=== PATIENT | female | born 1970 | race Caucasian/White ===

== ENCOUNTER → 2016-08-23 | Outpatient (CLI) | payer OTHER ==
[~2016-08-23] MED LIST: BENA25CA2 PO; ESCI10TA2 PO; FAMO1TAB11 PO; LEXA1TAB PO; PRED20TA PO; ZOLP6.25 PO
--- NOTE | 2016-08-24 07:54 | RADONC ---
RADIATION ONCOLOGY FOLLOWUP NOTE: DATE: 08/23/2016 CHART NO: [id number] DIAGNOSIS: Left breast cancer. STAGE: Stage III A, [id number] ECOG PERFORMANCE STATUS: 1 Ms. 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 The patient presents today reporting that she is doing quite well with no complaints today related to her radiation therapy other than uncomfortable lymphedema of her left upper extremity. She is being seen by the lymphedema clinic. The patient has no breast or bone pain. REVIEW OF SYSTEMS: The patient's review of systems is positive for some left upper extremity edema which is tender but is otherwise noncontributory. Denies nausea, vomiting, fevers, chills, night sweats, diplopia, headaches, anxiety or depression, anorexia, weight loss, visual disturbances, chest pain, urinary or bowel difficulties, bone pain, or neurological problems. PHYSICAL EXAMINATION: The patient is a well-developed, well-nourished female in no acute distress. HEENT exam is normocephalic, atraumatic. Extraocular movements are intact. There is no palpable cervical, supraclavicular, infraclavicular, axillary, or inguinal lymphadenopathy present. Lungs are clear to auscultation and percussion. Heart has a regular rate and rhythm. Abdomen is benign with no hepatosplenomegaly, masses, or tenderness. Breast examination reveals bilateral reconstruction. There is no evidence of nodularity ulceration or recurrent disease. Skeletal examination reveals no tenderness to pressure or percussion of the bony skeleton. Extremities reveal no clubbing, cyanosis. There is some mild left upper extremity edema present. or edema. Neurologic exam is grossly intact, as is the remainder of the physical examination. ASSESSMENT: The patient is clinically JASPREET at this time will be seen by us again in 1 year for further followup. She will also continue to be followed by her other physicians as well. cc: *Trung Medina MD *Mahin Harris MD *Dottie Wylie MD
== END ==
LOC: M ONCR 10:06
PROVIDERS: ATTEND Radiology Radiation Oncology
DX: C50.112 Malignant neoplasm of central portion of left female breast (principal)

== ENCOUNTER → 2016-08-25 | Outpatient (REF) | payer OTHER | LOC: M LAB REF 11:09 | PROVIDERS: ATTEND Physician Assistant Medical | DX: J02.9 Acute pharyngitis, unspecified (principal) ==

== ENCOUNTER 2016-09-28 09:12 | Outpatient (RCR) | payer OTHER | END 2016-10-01 | LOC: M PT 09:12 | PROVIDERS: ATTEND Radiology Radiation Oncology | DX: Z51.89 Encounter for other specified aftercare (principal); I89.0 Lymphedema, not elsewhere classified ==

== ENCOUNTER → 2017-08-22 | Outpatient (CLI) | payer OTHER ==
[2017-08-24 00:07] LABS: CA 27.29 13.7 U/mL (0.0-38.6)
[2017-08-24 10:18] LABS: CA15-3 ANTIGEN 6.3 U/ML (<32.4)
== END ==
LOC: M ONCR 10:04
DX: C50.112 Malignant neoplasm of central portion of left female breast (principal)
CPT/HCPCS: 86300

== ENCOUNTER → 2018-08-17 | Outpatient (CLI) | payer OTHER ==
[2018-08-17 18:02] LABS: BASO # 0.1 10^3/uL (0.0-0.2); BASO % 0.9 % (0.0-1.0); EOS # 0.1 10^3/uL (0.0-0.50); EOS % 1.3 % (0.0-3.0); HEMATOCRIT 43.2 % (36.0-47.0); HEMOGLOBIN 14.7 g/dl (12.0-15.5); LYMPH % 36.2 % (24.0-44.0); MEAN CORPUSCULAR HEMOGLOBIN 28.9 pg (27.0-33.0); MONO # 0.5 10^3/uL (0.0-0.8); MONO % 9.2 % (0.0-5.0); NEUTROPHILS # 2.8 10^3/uL (1.8-7.7); NEUTROPHILS % 52.2 % (36.0-66.0); PLATELET COUNT, AUTOMATED 204 10^3/uL (150-450); RED BLOOD COUNT 5.08 10^6/uL (4.00-5.40); WHITE BLOOD COUNT 5.4 10^3/uL (4.0-10.0)
[2018-08-17 18:11] LABS: ALBUMIN 4.7 GM/DL (3.2-5.2); ALT/SGPT 44 U/L (12-78); BLOOD UREA NITROGEN 14 MG/DL (7-18); CALCIUM LEVEL 9.5 MG/DL (8.5-10.1); CARBON DIOXIDE LEVEL 30 MEQ/L (21-32); CHLORIDE LEVEL 101 MEQ/L (98-107); CHOLESTEROL LEVEL 224 MG/DL (<200); CREATININE FOR GFR 0.78 MG/DL (0.55-1.30); FREE T4 1.12 NG/DL (0.76-1.46); GLOMERULAR FILTRATION RATE > 60.0 (>58); GLUCOSE, FASTING 98 MG/DL (70-100); HDL CHOLESTEROL 40 MG/DL (>40); HEMOGLOBIN A1c 4.6 %; LDL CHOLESTEROL 154 MG/DL (<100); NON-HDL-C 184 MG/DL; POTASSIUM SERUM 3.9 MEQ/L (3.5-5.1); SODIUM LEVEL 138 MEQ/L (136-145); TOTAL PROTEIN 8.4 GM/DL (6.4-8.2); TRIGLYCERIDES LEVEL 151 MG/DL (<150)
== END ==
LOC: M LABDRWAD 09:04
PROVIDERS: ATTEND Physician Assistant
DX: Z13.29 Encounter for screening for other suspected endocrine disorder (principal)

== ENCOUNTER → 2018-08-28 | Outpatient (CLI) | payer OTHER ==
--- NOTE | 2018-08-29 13:08 | RADONC ---
RADIATION ONCOLOGY FOLLOWUP NOTE DATE: 08/28/2018 CHART #: [id number] DIAGNOSIS: Left breast cancer. STAGE: III A, [id number]. ECOG PERFORMANCE STATUS: 0. FOLLOWUP NOTE: Ms. 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 The patient presents today reporting that she is doing quite well with no complaints at this time related to her radiation therapy or disease. She has no chest wall or bone pain. REVIEW OF SYSTEMS: The patient's review of systems is noncontributory. Denies nausea, vomiting, fevers, chills, night sweats, diplopia, headaches, anxiety or depression, anorexia, weight loss, visual disturbances, chest pain, urinary or bowel difficulties, bone pain, or neurological problems. PHYSICAL EXAMINATION: The patient is a well-developed, well-nourished, 48-year-old female in no acute distress. HEENT exam is normocephalic, atraumatic. Extraocular movements are intact. There is no palpable cervical, supraclavicular, infraclavicular, axillary, or inguinal lymphadenopathy present. Lungs are clear to auscultation and percussion. Heart has a regular rate and rhythm. Abdomen is benign with no hepatosplenomegaly, masses, or tenderness. Breast examination reveals bilateral reconstruction present. There is no evidence of nodularity, ulceration or recurrent disease. Skeletal examination reveals no tenderness to pressure or percussion of the bony skeleton. Extremities reveal no clubbing, cyanosis, or edema. Neurologic exam is grossly intact, as is the remainder of the physical examination. ASSESSMENT: The patient is clinically JASPREET at this time. I have explained to the patient that I will be retiring before her next visit here. I have recommended that she contact Dr. Harris's office and set up routine followup with her physicians in [place]. In the meantime, she is also being followed here by her primary care doctor. cc: MD Dottie Cornejo MD Joel Yellin, MD
== END ==
LOC: M ONCR 09:52
PROVIDERS: ATTEND Radiology Radiation Oncology
DX: Z85.3 Personal history of malignant neoplasm of breast (principal)

== ENCOUNTER → 2018-11-15 | Outpatient (CLI) | payer OTHER ==
[2018-11-15 12:51] LABS: ALBUMIN 4.1 GM/DL (3.2-5.2); ALT/SGPT 37 U/L (12-78); BILIRUBIN,TOTAL 0.5 MG/DL (0.2-1.0); BLOOD UREA NITROGEN 15 MG/DL (7-18); CALCIUM LEVEL 9.4 MG/DL (8.5-10.1); CARBON DIOXIDE LEVEL 34 MEQ/L (21-32); CHLORIDE LEVEL 105 MEQ/L (98-107); CHOLESTEROL LEVEL 165 MG/DL (<200); CHOLESTEROL RISK RATIO 4.459 (<5); CREATININE FOR GFR 0.66 MG/DL (0.55-1.30); GLOMERULAR FILTRATION RATE > 60.0 (>58); GLUCOSE, FASTING 86 MG/DL (70-100); HDL CHOLESTEROL 37 MG/DL (>40); LDL CHOLESTEROL 102 MG/DL (<100); MAGNESIUM LEVEL 2.3 MG/DL (1.8-2.4); NON-HDL-C 128 MG/DL; POTASSIUM SERUM 3.6 MEQ/L (3.5-5.1); SODIUM LEVEL 142 MEQ/L (136-145); TOTAL PROTEIN 7.7 GM/DL (6.4-8.2); TRIGLYCERIDES LEVEL 130 MG/DL (<150)
== END ==
LOC: M LAB 10:54
PROVIDERS: ATTEND Physician Assistant
DX: I10 Essential (primary) hypertension (principal)

== ENCOUNTER → 2019-08-15 | Outpatient (CLI) | payer OTHER ==
--- NOTE | 2019-08-19 11:53 | SLEEPHOME ---
DATE OF PROCEDURE: 08/15/2019 ORDERED BY: Kathy Quan Diagnostic home sleep testing was performed due to concern for the obstructive sleep apnea syndrome. For testing, a nocturnal T3 respiratory monitoring device was used. Continuous record was made of pulse, oxygen saturation, airflow, chest and abdominal strain and body position. 6 hours and 10 minutes of data were reviewed. There were 6 hours and 10 minutes marked as time in bed. During the interval marked time in bed, there were 57 respiratory events identified of 10 seconds in duration or greater for a respiratory event index of 9.2. The events were primarily obstructive. Baseline pulse rate 71, pulse rate ranged 59-98. Baseline saturation was 93%, saturations fell to 85%. Testing was performed in both the supine and nonsupine positions. IMPRESSION: Abnormal home sleep testing with repetitive respiratory events and oxygen desaturations to 85% with a respiratory event index of 9.2 is consistent with the obstructive sleep apnea syndrome. RECOMMENDATION: The patient should be encouraged to undergo formal sleep evaluation.
== END ==
LOC: M SLEEP HO 12:55
PROVIDERS: ATTEND Nurse Practitioner Family
DX: G47.33 Obstructive sleep apnea (adult) (pediatric) (principal)

== ENCOUNTER → 2019-09-30 | Outpatient (REF) | payer OTHER ==
[2019-09-30 13:04] LABS: BASO % 0.8 % (0.0-1.0); EOS # 0.1 10^3/uL (0.0-0.5); EOS % 1.3 % (0.0-3.0); HEMATOCRIT 39.1 % (36.0-47.0); HEMOGLOBIN 13.4 g/dl (12.0-15.5); LYMPH % 40.8 % (24.0-44.0); MEAN CORPUSCULAR HEMOGLOBIN 29.6 pg (27.0-33.0); MEAN CORPUSCULAR HGB CONC 34.3 g/dl (32.0-36.5); MEAN CORPUSCULAR VOLUME 86.5 fl (80.0-96.0); MONO # 0.4 10^3/uL (0.0-0.8); MONO % 8.1 % (0.0-5.0); NEUTROPHILS # 2.3 10^3/uL (1.5-8.5); NEUTROPHILS % 48.8 % (36.0-66.0); PLATELET COUNT, AUTOMATED 156 10^3/uL (150-450); RED BLOOD COUNT 4.52 10^6/uL (4.00-5.40); WHITE BLOOD COUNT 4.8 10^3/uL (4.0-10.0)
[2019-09-30 13:12] LABS: ALT/SGPT 32 U/L (12-78); BILIRUBIN,TOTAL 0.6 MG/DL (0.2-1.0); BLOOD UREA NITROGEN 14 MG/DL (7-18); CALCIUM LEVEL 9.1 MG/DL (8.5-10.1); CARBON DIOXIDE LEVEL 30 MEQ/L (21-32); CHLORIDE LEVEL 106 MEQ/L (98-107); CHOLESTEROL LEVEL 199 MG/DL (<200); CHOLESTEROL RISK RATIO 4.422 (<5); CREATININE FOR GFR 0.62 MG/DL (0.55-1.30); GLOMERULAR FILTRATION RATE > 60.0 (>58); GLUCOSE, FASTING 86 MG/DL (70-100); HDL CHOLESTEROL 45 MG/DL (>40); LDL CHOLESTEROL 127 MG/DL (<100); NON-HDL-C 154 MG/DL; POTASSIUM SERUM 4.3 MEQ/L (3.5-5.1); SODIUM LEVEL 140 MEQ/L (136-145); TOTAL PROTEIN 7.4 GM/DL (6.4-8.2); TRIGLYCERIDES LEVEL 134 MG/DL (<150)
[2019-09-30 13:19] LABS: TOTAL 25(OH) VITAMIN D 12.1 NG/ML (30.0-100.0)
== END ==
LOC: M LABDRWAD 12:37
PROVIDERS: ATTEND Physician Assistant
DX: E78.2 Mixed hyperlipidemia (principal)

== ENCOUNTER 2021-01-05 17:30 | Emergency (ER) | payer OTHER ==
[~2021-01-05] VITALS: Ht 167.6 cm; Wt 12.3 kg
[~2021-01-05 17:30] MED LIST changes: +ESCI10TA16 PO; -ESCI10TA2 PO; -ZOLP6.25 PO; +ZOLP6.2517 PO
[2021-01-05] MEDS ORDERED: POTA1TAB23 (17:44)
[2021-01-05] MEDS ORDERED: FURO40TA2 (17:44)
[2021-01-05] MEDS ORDERED: PANT40TA29 (17:44)
[2021-01-05] MEDS ORDERED: SEMA0.252 (17:44)
--- NOTE | 2021-01-05 21:32 | REPVR ---
PROCEDURE INFORMATION: Exam: US Duplex Left Lower Extremity Veins, Limited Exam date and time: 01/05/2021 7:49 PM Age: 50 years old Clinical indication: Pain; Leg, lower; Left; Additional info: Swelling TECHNIQUE: Imaging protocol: Real-time Duplex ultrasound of the Left Lower Extremity with 2-D killian scale, color Doppler flow and spectral waveform analysis with image documentation. Limited exam focused on the left lower extremity veins. COMPARISON: CT CHEST/ABD/PELVIS W/ CONTRAST - OUTSIDE PRIOR 03/28/2017 12:00 AM FINDINGS: Left deep veins: Unremarkable. The common femoral, femoral, proximal profunda femoral and popliteal veins are patent without thrombus. Normal Doppler waveforms. Normal compressibility and/or augmentation response. Left superficial veins: Unremarkable. Saphenofemoral junction is patent without thrombus. Soft tissues: Lower leg edema. IMPRESSION: Lower leg edema. No DVT. Electronically signed by: Juan R Pemberton On 01/05/2021 21:31:55 PM
[2021-01-05 21:52] VITALS: BP 135/71
== END 2021-01-05 21:56 | disposition home or self-care (01) ==
LOC: M ED 17:30
DX: S86.912A Strain of unspecified muscle(s) and tendon(s) at lower leg level, left leg, initial encounter (principal); X58.XXXA Exposure to other specified factors, initial encounter; Y92.9 Unspecified place or not applicable; Y93.9 Activity, unspecified; Y99.9 Unspecified external cause status; K21.9 Gastro-esophageal reflux disease without esophagitis; Z88.0 Allergy status to penicillin; Z88.1 Allergy status to other antibiotic agents; Z88.8 Allergy status to other drugs, medicaments and biological substances

== ENCOUNTER 2021-03-27 10:43 | Emergency (ER) | payer OTHER ==
[~2021-03-27] VITALS: Ht 167.6 cm; Wt 114.3 kg
[~2021-03-27 10:43] MED LIST changes: +FURO40TA2; +PANT40TA29; +POTA1TAB23; +SEMA0.252
--- OUTSIDE RECORDS SUMMARY | 2021-03-27 10:51 | CCD | Continuity of Care Document ---
Author Kimberly Samuels Organization Unknown Address [address] [place] [address] Phone [phone] Care Team Providers Care Machine Trimmer Name Role Phone Magda Westbrook D.O.M Problems Active Problems Provider Date Migraine without aura, not refractory AVA Díaz On set: 08/12/2018 Generalized anxiety disorder AVA Díaz Onset: 08/02 Personal history of primary malignant neoplasm of breast [place]nn haAVA Ballard Onset: 08/12/2018 Obstructive sleep apnea syndrome AVA Díaz Onset: 08/12/2018 Postmastectomy lymphedema syndrome AVA Díaz Onset : 08/12/2018 Essential hypertension AVA Díaz Onset: 10/17/2018 Mixed hyperlipidemia AVA Díaz Onset: 10/17/2018 Obesity AVA Díaz Onset: 10/17/2018 Vitamin D deficiency AVA Díaz Onset: 01/12/2020 Lymphedema AVA Díaz Onset: 01/12/2020 Social History Type Date Description Comments Sex Unknown ETOH Use Denies alcohol use Tobacco Use Start: Unknown Patient has never smoked Recreational Drug Use Denies Drug Use Exercise Type/Frequency Walks 5 times a week Sun Exposure Uses sunscreen Seat Belt/Car Seat Always uses seat belt Allergies, Adverse Reactions, Alerts Active Allergies Reaction Severity Comments Date Vicodin rash 07/29/2018 Escitalopram anaphylaxsis 07/29/2018 Zolpidem Tartrate anaphylaxsis 07/29/2018 Vancomycin anaphylaxsis 07/29/2018 Contrast Dye anaphylaxsis 07/29/2018 Gentamicin rash 07/29/2018 Venlafaxine headache, rash 07/29/2018 Reglan anaphylaxsis 07/29/2018 Latex rash 07/29/2018 Ceftin gum bleeding 07/29/2018 Prednisone anaphylaxsis 07/29/2018 Penicillin rash 07/29/2018 Cephalosporins 07/29/2018 Adhesive rash 07/29/2018 Claritin 08/12/2018 Medications Active Medications SIG Qnty Indications Ordering Provide r Date Pantoprazole Sodium 40mg Tablets D R 1 by mouth every day 90tabs K21.9 Fide Lipscomb.O. 12/28 Zofran 4mg Tablets 1-2 tablets by mouth every 6 hours as needed for nausea 45tabs K21.9 Fide Hernandez.O. 12/28/2020 Wegovy 0.25mg/0.5ML Solution Auto- Inject once a week injection at 0.25 mg for four weeks and then every 4 weeks increase dosage to 0.5 mg, 1 mg, 1.7 mg then 2.4 mg 2ml E66.9 Chance LipscombOJuli 12/28/2020 Furosemide 40mg Tablets Take One Tablet By Mouth Every Morning 90tabs R60.0 Chance LipscombO. 0 10/21/2020 Medical Compression Stockings/Female/15- 20MMHG/Knee/LG/Short Mis one unit to wear daily to help with edema of leg 2units R60.0 Chance LipscombOJuli 01/22/2019 Truform Arm Sleeve/Medium/20-30MMHG Misc left arm wear as needed for edema. 2units I89.0 Chance HernandezOJuli 01/22/2019 Blood Pressure Monitor Digital/Auto-In flation Misc one unit, check blood pressure regularly 1units I10 Chance TelloOJuli 08/12/2018 Potassium Chloride ER 10Meq Tablet s ER Take Two Tablets By Mouth Every Other Day Alternating With 4 Tablets Every Other Day 240tabs Chance LipscombOJuli 00/00 /0000 Immunizations Description No Information Available Vital Signs Date Vital Result Comment 12/28/2020 1:18pm BP Systolic 128 mmHg BP Diastolic 78 mmHg Height 64 inches 5'4" Weight 271.00 lb BMI (Body Mass Index) 46.5 kg/m2 Heart Rate 61 /min Respiratory Rate 14 /min Body Temperature 97.8 F O2 % BldC Oximetry 97 % [place] Body Weight 120 lb 01/12/2020 1:01pm BP Systolic 126 mmHg BP Diastolic 72 mmHg Height 64 inches 5'4" Weight 231.38 lb BMI (Body Mass Index) 39.7 kg/m2 Heart Rate 71 /min Respiratory Rate 18 /min Body Temperature 97.9 F O2 % BldC Oximetry 98 % [place] Body Weight 120 lb Results Description No Information Available Procedures Date Code Description Status 12/28/2020 79024 Office/Outpatient Established Mo d MDM 30-39 Min Completed Medical Devices Description No Information Available Encounters Type Date Location Provider Dx Diagnosis Office Visit 12/28/2020 1:15p [facility] AVA Díaz I10 Essential (primary) hyperten larisa E78.2 Mixed hyperlipidemia I89.0 Lymphedema, not elsewhere cl assified E55.9 Vitamin D deficiency, unspec ified E66.9 Obesity, unspecified K21.9 Gastro-esophageal reflux dis ease without esophagitis Z68.42 Body mass index [BMI] 45.0-4 9.9, adult Assessments Date Code Description Provider 12/28/2020 I10 Essential (primary) hypertension AVA Díaz 12/28/2020 E78.2 Mixed hyperlipidemia AVA Babin 12/28/2020 I89.0 Lymphedema, not elsewhere classi fied AVA Díaz 12/28/2020 E55.9 Vitamin D deficiency, unspecifie d AVA Díaz 12/28/2020 E66.9 Obesity, unspecified AVA Babin 12/28/2020 K21.9 Gastro-esophageal reflux disease without esophagitis AVA Díaz 12/28/2020 Z68.42 Body mass index [BMI] 45.0-49.9, adult AVA Díaz Plan of Treatment Future Appointment(s):* 02/28/2021 3:30 pm - AVA Díaz at [facility] Functional Status Description No Information Available Mental Status Description No Information Available Referrals Description No Information Available
--- OUTSIDE RECORDS SUMMARY | 2021-03-27 10:52 | CCD ---
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 Name Role Phone Maring, Casey PA Unavailable Unavailable Maring, Casey PA Unavailable Unavailable Maring, Casey PA Unavailable Unavailable Maring, Casey PA Unavailable Unavailable Maring, Casey PA Unavailable Unavailable Maring, Casey PA Unavailable Unavailable Maring, Casey PA Unavailable Unavailable Maring, Casey PA Unavailable Unavailable Maring, Casey PA Unavailable Unavailable Maring, Casey PA Unavailable Unavailable Maring, Casey PA Unavailable Unavailable Maring, Casey PA Unavailable Unavailable Maring, Casey PA Unavailable Unavailable Maring, Casey PA Unavailable Unavailable Maring, Casey PA Unavailable Unavailable Maring, Casey PA Unavailable Unavailable O'shari, A Remberto PA Unavailable Unavailable O'shari, A Remberto PA Unavailable Unavailable O'shari, A Remberto PA Unavailable Unavailable O'shari, A Remberto PA Unavailable Unavailable O'shari, A Remberto PA Unavailable Unavailable O'shari, A Remberto PA Unavailable Unavailable O'shari, A Remberto PA Unavailable Unavailable O'shari, A Remberto PA Unavailable Unavailable O'shari, A Remberto PA Unavailable Unavailable O'shari, A Remberto PA Unavailable Unavailable O'shari, A Remberto PA Unavailable Unavailable O'shari, A Remberto PA Unavailable Unavailable O'shari, A Remberto PA Unavailable Unavailable O'shari, A Remberto PA Unavailable Unavailable O'shari, A Remberto PA Unavailable Unavailable O'shari, A Remberto PA Unavailable Unavailable O'shari, A Remberto PA Unavailable Unavailable O'shari, A Remberto PA Unavailable Unavailable O'shari, A Remberto PA Unavailable Unavailable O'shari, A Remberto PA Unavailable Unavailable O'shari, A Remberto PA Unavailable Unavailable O'shari, A Remberto PA Unavailable Unavailable O'shari, A Remberto PA Unavailable Unavailable O'shari, A Remberto PA Unavailable Unavailable O'shari, A Remberto PA Unavailable Unavailable O'shari, A Remberto PA Unavailable Unavailable O'shari, A Remberto PA Unavailable Unavailable O'shari, A Remberto PA Unavailable Unavailable O'shari, A Remberto PA Unavailable Unavailable O'shari, A Remberto PA Unavailable Unavailable O'shari, A Remberto PA Unavailable Unavailable O'shari, A Remberto PA Unavailable Unavailable O'shari, A Remberto PA Unavailable Unavailable Re-disclosure Warning The records that you are about to access may contain information from federally-assisted alcohol or drug abuse programs. If such information is present, then the following federally mandated warning applies: This information has been disclosed to you from records protected by federal confidentiality rules (42 CFR part 2). The federal rules prohibit you from making any further disclosure of this information unless further disclosure is expressly permitted by the written consent of the person to whom it pertains or as otherwise permitted by 42 CFR part 2. A general authorization for the release of medical or other information is NOT sufficient for this purpose. The Federal rules restrict any use of the information to criminally investigate or prosecute any alcohol or drug abuse patient.The records that you are about to access may contain highly sensitive health information, the redisclosure of which is protected by Article 27-F of the [facility] Public Health law. If you continue you may have access to information: Regarding HIV / AIDS; Provided by facilities licensed or operated by the [facility] Office of Mental Health; or Provided by the [facility] Office for People With Developmental Disabilities. If such information is present, then the following [facility] mandated warning applies: This information has been disclosed to you from confidential records which are protected by state law. State law prohibits you from making any further disclosure of this information without the specific written consent of the person to whom it pertains, or as otherwise permitted by law. Any unauthorized further disclosure in violation of state law may result in a fine or group home sentence or both. A general authorization for the release of medical or other information is NOT sufficient authorization for further disc losure. Family History Family Member Name Family Member Gender Family Member Status Date o f Status Description Data Source(s) Unknown Male Problem [facility] ([facility]) Unknown Unknown Problem [facility] mother,father Unknown Male Problem [facility] Unknown Female Problem [facility] ([facility] Unknown Female Problem [facility] ([facility] Unknown Male Problem [facility] ([facility]) Encounters Encounter Providers Location Date Indications Data Source(s ) Outpatient Attender: Casey ESCALNATE 01/06/20 04:23:56 PM EDT - 01/05/2021 04:53:36 PM EDT [facility] ([facility] ) Outpatient Attender: Remberto ESCALANTE [facility] 12/28/2020 01:15:00 PM EDT [facility] ([facility]) Immunizations Vaccine Date Status Description Data Source(s) COVID-19 VACC, MRNA(PFIZER)/PF 03/23/2021 12:00:00 AM EDT completed [facility] COVID-19 VACCINE Pfizer 08/17/2020 12:00:00 AM EDT completed [facility] Vaccine Series Complete: YESThis Data wa s Submitted to [facility]. COVID-19 VACCINE Pfizer 07/27/2020 12:00:00 AM EST completed [facility] Vaccine Series Complete: NOThis Data was Submitted to [facility] INFLUENZA VIRUS VACCINE QUADRIVALENT 2019- (6 MOS AN D UP) 02/04/2020 12:00:00 AM EDT completed [facility] Medications Medication Brand Name Start Date Product Form Dose Route Admi nistrative Instructions Pharmacy Instructions Status Indications Reaction Description Data Source(s) 32 gauge x 5/32" 02/24/2021 12:00:00 AM EDT needle 90 USE DAILY WITH SAXENDA DIRECTED USE DAILY WITH SAXENDA DIRECTED SOLD: 02/26/2021 [facility] 3 mg/0.5 mL (18 mg/3 mL) 02/23/2021 12:00:00 AM EDT pen inje ctor 45 INJECT 0.6 MG UNDER THE SKIN DAILY FOR 1 WEEK AND THEN EACH WEEK INCREASE DOSE BY 0.6, INCREASE UP TO A TOTAL OF 3MG INJECT 0.6 MG UNDER THE SKIN DAILY FOR 1 WEEK AND THEN EACH WEEK INCREASE DOSE BY 0.6, INCREASE UP TO A TOTAL OF 3MG SOLD: 02/26/2021 [facility] 60 mcg (15 mcg x 4)/0.5 mL 02/09/2021 12:00:00 AM EDT syring e 0 USE DIRECTED USE DIRECTED SOLD: 02/09/2021 [facility] 40 mg 02/01/2021 12:00:00 AM EDT tablet 90 TAKE ONE TABLET BY MOUTH EVERY MORNING TAKE ONE TABLET BY MOUTH EVERY MORNING SOLD: 02/02/2021 [facility] 0.5 mg/0.5 mL 01/24/2021 12:00:00 AM EDT pen injector 2 INJECT 0.5MG UNDER SKIN ONCE WEEKLY FOR 4 WEEKS, THEN CALL DR FOR NEW RX AT HIGHER DOSE INJECT 0.5MG UNDER SKIN ONCE WEEKLY FOR 4 WEEKS, THEN CALL DR FOR NEW RX AT HIGHER DOSE SOLD: 01/25/2021 [facility] 0.25 mg/0.5 mL 12/29/2020 12:00:00 AM EDT pen injector 2 INJECT 0.25MG ONCE WEEKLY FOR 4 WEEKS THEN INCREASE TO 0.5MG WEEKLY THEN IN 4 WEEKS INCREASE TO 1.7MG WEEKLY THEN IN 4 WEEKS INCREASE TO 2.4MG WEEKLY INJECT 0.25MG ONCE WEEKLY FOR 4 WEEKS THEN INCREASE TO 0.5MG WEEKLY THEN IN 4 WEEKS INCREASE TO 1.7MG WEEKLY THEN IN 4 WEEKS INCREASE TO 2.4MG WEEKLY SOLD: 12/29/2020 [facility] pantoprazole 40 MG Delayed Release Oral Tablet PANTOPRAZOLE SODIUM 12/28/2020 12:00:00 AM EDT tablet,delayed release (DR/EC) 90 T LUCI ONE TABLET BY MOUTH EVERY DAY TAKE ONE TABLET BY MOUTH EVERY DAY SOLD: 12/29/2020 [facility] pantoprazole 40 MG Delayed Release Oral Tablet PANTOPRAZOLE SODIUM 12/28/2020 12:00:00 AM EDT tablet,delayed release (DR/EC) 90 T LUCI ONE TABLET BY MOUTH EVERY DAY TAKE ONE TABLET BY MOUTH EVERY DAY SOLD: 03/23/2021 [facility] Wegovpaulina Wegovy 12/28/2020 12:00:00 AM EDT active [facility] ([facility]) pantoprazole 40 MG Delayed Release Oral Tablet Pantoprazole Sodium 12/28/2020 12:00:00 AM EDT ORAL active [facility] ([facility]) Ondansetron 4 MG Oral Tablet [Zofran] Zofran 12/28/2020 12:00:00 AM EDT ORAL active [facility] ([facility]) Potassium Chloride 10 MEQ Extended Release Oral Tablet POTAS SIUM CHLORIDE 12/28/2020 12:00:00 AM EDT tablet extended release 240 TAKE TWO TABLETS BY MOUTH EVERY OTHER DAY ALTERNATING WITH 4 TABLETS EVERY OTHER DAY TAKE TWO TABLETS BY MOUTH EVERY OTHER DAY ALTERNATING WITH 4 TABLETS EVERY OTHER DAY SOLD: 12/29/2020 [facility] 4 mg 12/28/2020 12:00:00 AM EDT tablet 9 TAKE 1 TO 2 TABLETS BY MOUTH EVERY 6 HOURS NEEDED FOR NAUSEA TAKE 1 TO 2 TABLETS BY MOUTH EVERY 6 ISA RS NEEDED FOR NAUSEA SOLD: 12/29/2020 [facility] Potassium Chloride 10 MEQ Extended Release Oral Tablet POTAS SIUM CHLORIDE 12/28/2020 12:00:00 AM EDT tablet extended release 240 TAKE TWO TABLETS BY MOUTH EVERY OTHER DAY ALTERNATING WITH 4 TABLETS EVERY OTHER DAY TAKE TWO TABLETS BY MOUTH EVERY OTHER DAY ALTERNATING WITH 4 TABLETS EVERY OTHER DAY SOLD: 03/23/2021 [facility] Furosemide 40 MG Oral Tablet Furosemide 10/21/2020 12:00:00 AM EDT active [facility] ([facility]) 40 mg 10/21/2020 12:00:00 AM EDT tablet 90 TAKE ONE TABLET BY MOUTH EVERY MORNING TAKE ONE TABLET BY MOUTH EVERY MORNING SOLD: 10/22/2020 [facility] 32 gauge x 5/32" 03/14/2020 12:00:00 AM EDT needle 100 USE NEEDLES FOR SAXENDA DIRECTED USE NEEDLES FOR SAXENDA DIRECTED SOLD: 03/18/2020 [facility] . UNIT 02/04/2020 12:00:00 AM EDT Injectable 1 US E DIRECTED USE DIRECTED SOLD: 02/04/2020 [facility] Potassium Chloride 10 MEQ Extended Release Oral Tablet POTAS SIUM CHLORIDE 01/31/2020 12:00:00 AM EDT tablet extended release 240 TAKE TWO TABLETS BY MOUTH EVERY OTHER DAY ALTERNATING WITH 4 TABLETS EVERY OTHER DAY TAKE TWO TABLETS BY MOUTH EVERY OTHER DAY ALTERNATING WITH 4 TABLETS EVERY OTHER DAY SOLD: 02/03/2020 [facility] Potassium Chloride 10 MEQ Extended Release Oral Tablet POTAS SIUM CHLORIDE 01/31/2020 12:00:00 AM EDT tablet extended release 240 TAKE TWO TABLETS BY MOUTH EVERY OTHER DAY ALTERNATING WITH 4 TABLETS EVERY OTHER DAY TAKE TWO TABLETS BY MOUTH EVERY OTHER DAY ALTERNATING WITH 4 TABLETS EVERY OTHER DAY SOLD: 05/01/2020 [facility] 40 mg 01/29/2020 12:00:00 AM EDT tablet 90 TAKE ONE TABLET BY MOUTH EVERY MORNING TAKE ONE TABLET BY MOUTH EVERY MORNING SOLD: 05/01/2020 [facility] 40 mg 01/29/2020 12:00:00 AM EDT tablet 90 TAKE ONE TABLET BY MOUTH EVERY MORNING TAKE ONE TABLET BY MOUTH EVERY MORNING SOLD: 02/03/2020 [facility] 1,250 mcg (50,000 unit) 01/29/2020 12:00:00 AM EDT capsule 12 TAKE ONE CAPSULE BY MOUTH EVERY WEEK TAKE ONE CAPSULE BY MOUTH EVERY WEEK SOLD: 02/03/2020 [facility] 1,250 mcg (50,000 unit) 10/02/2019 12:00:00 AM EDT capsule 7 TAKE 1 CAPSULE BY MOUTH WEEKLY TAKE 1 CAPSULE BY MOUTH WEEKLY SOLD: 05/01/2020 [facility] 3 mg/0.5 mL (18 mg/3 mL) 08/11/2019 12:00:00 AM EDT pen inje ctor 45 USE 0.6 MG UNDER THE SKIN DAILY FOR 1 WEEK THEN EACH WEEK INCREASE DOSE BY 0.6, INCREASE UP TO TOTAL OF 3 MG USE 0.6 MG UNDER THE SKIN DAILY FOR 1 WE EK THEN EACH WEEK INCREASE DOSE BY 0.6, INCREASE UP TO TOTAL OF 3 MG SOLD: 01/29/2020 [facility] Insurance Providers Payer name Policy type / Coverage type Policy ID Covered libertarian ID Covered libertarian's relationship to ortiz Policy Ortiz Plan Information BS [facility] Maintenance Organization (HMO) [id number] Family Dependent EXC PLANS 1 [id number] [facility] 2 [id number] EXCELLUS H [id number] Child [id number] JOSÉ MANUEL CLAIMS ADMIN NCA WC W [id number] Empl [id number] EXCELLUS H [id number] Child [id number] EXCELLUS BCBS [id number] Spo VYS [id number] EXCELLUS BCBS [id number] Spo VYS [id number] Nca Comp Workers Compensation [id number] Self Nca Comp Workers Compensation [id number] Self [id number] JOSÉ MANUEL CLAIMS ADMIN NCA WC W [id number] Empl [id number] Nca Comp Workers Compensation [id number] Self [id number] Nca Comp Workers Compensation [id number] Self Nca Comp Workers Compensation [id number] Self [id number] Nca Comp Workers Compensation [id number] Self [id number] Nca Comp Workers Compensation [id number] Self [id number] [employer] (WC) Workers Compensation [id number] Self [facility] Com Workers Compensation [id number] Carlee f Nca Comp Workers Compensation [id number] Self [id number] [employer] [id number] Self [id number] [employer] [id number] Carlee [id number] R [facility] [id number] SP [id number] R [facility] [id number] SP [id number] [facility] [employer] [id number] Self [id number] KARMA CLAIM ADMIN WORK COMP [id number] SP [id number] BS/W/Id#Prefix/W ALL #'S Commercial [id number] Family Depende nt KARMA CLAIM ADMIN WORK COMP [id number] SP [id number] KARMA CLAIM ADMIN WORK P [id number] S [id number] KARMA CLAIM ADMIN WORK COMP [id number] SP [id number] OTHER WORKERS COMPENSATION [id number] SP [id number] KARMA CLAIM ADMIN WORK COMP [id number] SP [id number] SELF PAY 2 UNAVAILABLE 1 UNAVAILA BLE [facility] [id number] SP [id number] [facility] Commercial [id number] Self [id number] [facility] [id number] SP [id number] [facility] Maintenance Organization (HMO) [id number] Self [id number] [facility] Organization (HMO) [id number] Self [id number] [employer] [id number] SP [id number] BC/BS Of [facility] B [id number] Family Dependent V [id number] [employer] PPO O [id number] O [id number] [employer] PPO O [id number] S [id number] [employer] Workers Compensation [id number] Self [id number] [employer] [id number] Self [id number] [employer] [id number] Self [id number] [employer] [id number] Self [id number] [employer] [id number] Self [id number] [employer] [id number] Self [id number] [employer] [id number] Self [id number] [employer] [id number] Self [id number] [employer] [id number] Self [employer] Workers Compensation [id number] Self BCBS[employer] [id number] Family Dependent BCBS [place] PPO [id number] [employer] [id number] Self EXCELLUS BCBS B [id number] P VYS [id number] BCBS [place] PPO 302/307 [id number] Problems, Conditions, and Diagnoses No Information Surgeries/Procedures Procedure Description Date Indications Data Source(s) OFFICE OUTPATIENT VISIT 25 MINUTES 12/28/2020 12:00:[address] [facility] ([facility]) Results No Information Social History Code Duration Value Status Description Data Source(s ) Smoking 03/03/2020 12:00:00 AM EDT Non Smoker completed Non Smoke r [facility] ([facility], ) Vital Signs ID Date Data Source UNK Name Value Range Interpretation Code Description Data Source(s) Systolic blood pressure 128 mm[Hg] 128 mm[Hg] [facility] Diastolic blood pressure 78 mm[Hg] 78 mm[Hg] [facility] Body height 64 [in_i] 64 [in_i] [facility] ([facility] 5'4" Body weight 271.00 [lb_av] 271.00 [lb_av] [facility] T ([facility]) Body mass index (BMI) [Ratio] 46.5 kg/m2 46.5 k g/m2 [facility] ([facility]) Heart rate 61 /min 61 /min [facility] ([facility]) Respiratory rate 14 /min 14 /min [facility] ( [facility]) Body temperature 97.8 [degF] 97.8 [degF] [facility] ([facility]) Oxygen saturation in Arterial blood by Pulse oximetry 97 % 97 % [facility] ([facility]) [place] body weight 120 [lb_av] 120 [lb_av] [facility] T ([facility]) Systolic blood pressure 122 mm[Hg] 122 mm[Hg] M EDENT ([facility], ) Body weight 109.885 kg 109.885 kg [facility] ([facility]) Diastolic blood pressure 68 mm[Hg] 68 mm[Hg] [facility] Heart rate 69 /min 69 /min [facility] ([facility], ) Oxygen saturation in Arterial blood by Pulse oximetry 98 % 98 % [facility] ([facility]) Body temperature 96.0 [degF] 96.0 [degF] [facility] ([facility]) Body height 65 [in_i] 65 [in_i] [facility] ([facility]) 5'5" Body weight 242.25 [lb_av] 242.25 [lb_av] [facility] T ([facility]) Body mass index (BMI) [Ratio] 40.3 kg/m2 40.3 k g/m2 [facility] ([facility]) [place] body weight 125 [lb_av] 125 [lb_av] [facility] T ([facility])
[2021-03-27] MEDS ORDERED: SAXE1INJ SQ (10:56)
[2021-03-27] MEDS ORDERED: MAGN200T PO (11:33)
[2021-03-27] MEDS ORDERED: NORCO, ANEXSIA 5/325MG TABLET (HYDROcodone/ACETAMINOPHEN) PO ONE (11:50)
[2021-03-27] MEDS ORDERED: diphenhydrAMINE 50MG/ML VIAL (J1200) IV STA (11:50)
--- OUTSIDE RECORDS SUMMARY | 2021-03-27 12:18 | CCD ---
Author Author [facility] Organization [facility] Address Unknown Phone Unavailable Care Team Providers Care Analyst Business Analysis Name Role Phone Maring, Casey PA Unavailable [...] is protected by Article 27-F of the [facility] Public Health law. If you continue you may have access to information: Regarding HIV / AIDS; Provided by facilities licensed or operated by the [facility] Office of Mental Health; or Provided by the [facility] Office for People With Developmental Disabilities. If such information is present, then the following [facility] mandated warning applies: This information has been [...] law may result in a fine or longterm sentence or both. A general authorization for the release of medical or other information is NOT sufficient authorization for further disc losure. Family History Family Member Name Family Member Gender Family Member Status Date o f Status Description Data Source(s) Unknown Male Problem [facility] ([facility]) Unknown Unknown Problem [facility] mother,father Unknown Male Problem [facility] ([facility] Female Problem [facility] ([facility] Unknown Female Problem [facility] ([facility] Unknown Male Problem [facility] ([facility]) Encounters Encounter Providers Location Date Indications Data Source(s ) Outpatient Attender: Casey ESCALANTE 01/06/20 04:23:56 PM EDT - 01/05/2021 04:53:36 PM EDT [facility] ([facility] ) Outpatient Attender: Remberto ESCALANTE [facility] 12/28/2020 01:15:00 PM EDT [facility] ([facility]) Immunizations Vaccine Date Status Description Data Source(s) COVID-19 VACC, MRNA(PFIZER)/PF 03/23/2021 12:00:00 AM EDT completed [facility] COVID-19 VACCINE Pfizer 08/17/2020 12:00:00 AM EDT completed [facility] Vaccine Series Complete: YESThis Data wa s Submitted to [facility] Via [employer]. COVID-19 VACCINE Pfizer 07/27/2020 12:00:00 AM EST completed [facility] Vaccine Series Complete: NOThis Data was Submitted to [facility] Via [employer]. INFLUENZA VIRUS VACCINE QUADRIVALENT 2019- (6 MOS [...] USE DIRECTED USE DIRECTED SOLD: 02/09/2021 [facility] 40 mg 02/01/2021 12:00:00 AM EDT [...] [facility] 12/28/2020 12:00:00 AM EDT active [facility] ([facility]) pantoprazole 40 MG Delayed Release Oral Tablet Pantoprazole Sodium 12/28/2020 12:00:00 AM EDT ORAL active [facility] ([facility]) Ondansetron 4 MG Oral Tablet [Zofran] Zofran 12/28/2020 12:00:00 AM EDT ORAL active [facility] ([facility]) Potassium Chloride 10 MEQ Extended Release [...] Furosemide 10/21/2020 12:00:00 AM EDT active [facility] ([facility]) 40 mg 10/21/2020 12:00:00 AM EDT tablet [...] type / Coverage type Policy ID Covered alliance party ID Covered alliance party's relationship to ortiz Policy Ortiz Plan Information BS [facility] Maintenance Organization (HMO) [id number] Family Dependent EXC PLANS 1 [id number] [employer] 2 [id number] EXCELLUS H [id number] Child [id number] JOSÉ MANUEL CLAIMS ADMIN NCA WC W [id number] Empl [id number] EXCELLUS H [id number] Child [id number] EXCELLUS BCBS [id number] Spo VYS [id number] EX[employer] BCBS [id number] Spo VYS [id number] Nca Comp Workers Compensation [id number] Self Nca Comp Workers Compensation [id number] Self [id number] JOSÉ MANUEL CLAIMS ADMIN NCA WC W [id number] Empl [id number] Nca Comp Workers Compensation [id number]. [id number] Self [id number] Nca Comp Workers Compensation [id number] Self Nca Comp Workers Compensation [id number]. [id number] Self [id number] Nca Comp Workers Compensation [id number]. [id number] Self [id number] Nca Comp Workers Compensation [id number]. [id number] Self [id number] [employer] ([employer]) Workers Compensation [id number] Self [facility] Com Workers Compensation [id number] Carlee f Nca Comp Workers Compensation [id number] [id number]. [id number] Self [id number] [employer] [id number] Self [id number] [employer] [id number] Carlee [id number] R [facility] [id number] SP [id number] R [facility] [id number] SP [id number] [facility] [employer] [id number] Self [id number] [employer] CLAIM ADMIN WORK COMP [id number] SP [id number] BS/W/Id#Prefix/W ALL #'S Commercial [id number] Family Depende nt KARMA CLAIM ADMIN WORK COMP [id number] SP [id number] KARMA CLAIM ADMIN WORK P [id number] S [id number] KARMA CLAIM ADMIN WORK COMP [id number] SP [id number] OTHER WORKERS COMPENSATION [id number] SP [id number] KARMA CLAIM ADMIN WORK COMP [id number] SP [id number] SELF PAY 2 UNAVAILABLE 1 UNAVAILA BLE [facility] [id number] SP [id number] [facility] Commercial [id number] Self [id number] [facility] [id number] SP [id number] [facility] [facility] Maintenance Organization (HMO) [id number] Self [id number] [facility] Maintenance Organization (HMO) [id number] Self [id number] [employer] [id number] SP [id number] BC/BS Of [facility] B [id number] Family Dependent V [id number] [employer] PPO O [id number] O [id number] [employer] PPO O [id number] S [id number] [employer] Workers Compensation [id number] Self [id number] [employer] [id number] .[id number] Self [id number] [employer] [id number] Self [id number] [employer] [id number] [id number] Self [id number] [employer] [id number] [id number] Self [id number] [employer] [id number] 2.[id number] Self [id number] [employer] [id number] [id number] Self [id number] [employer] [id number] Self [id number] [employer] [id number] Self [employer] Workers Compensation [id number] Self BCBS[employer] [id number] Family Dependent BCBS [place] PPO 302/307 [id number] [employer] [id number] Self EXCELLUS BCBS B [id number] P VYS [id number] BCBS [place] WAT[place] PPO 302/307 [id number] [id number] Problems, Conditions, and Diagnoses No Information Surgeries/Procedures Procedure Description Date Indications Data Source(s) OFFICE OUTPATIENT VISIT 25 MINUTES 12/28/2020 12:00:00 AM EDT [facility] ([facility]) Results No Information Social History Code Duration Value Status Description Data Source(s ) Smoking 03/03/2020 12:00:00 AM EDT Non Smoker completed Non Smoke r [facility] ([facility] ) Vital Signs ID Date Data Source UNK Name Value Range Interpretation Code Description Data Source(s) [facility]stolic blood [facility] 128 mm[Hg] 128 [facility]Hg[facility] Diastolic blood pressure 78 mm[Hg] 78 [facility] Body height 64 [in_i] 64 [in_i] [facility] ([facility]) 5'4" Body weight 271.00 [lb_av] 271.00 [lb_av] [facility] T ([facility]) Body mass index (BMI) [Ratio] 46.5 kg/m2 46.5 k g/m2 [facility] ([facility]) Heart rate 61 /min 61 /min [facility] ([facility]) Respiratory rate 14 /min 14 /min [facility] ( [facility]) Body temperature 97.8 [degF] 97.8 [degF] [facility] ([facility]) Oxygen saturation in Arterial blood by Pulse oximetry 97 % 97 % [facility] ([facility]) Anthon body weight 120 [lb_av] 120 [lb_av] [facility] T ([facility]) Systolic blood pressure 122 mm[Hg] 122 mm[Hg] [facility] ([facility], ) Diastolic blood pressure 68 mm[Hg] 68 mm[Hg] [facility] ([facility]) Heart rate 69 /min 69 /min [facility] ([facility], ) Oxygen saturation in Arterial blood by Pulse oximetry 98 % 98 % [facility] ([facility]) Body temperature 96.0 [degF] 96.0 [degF] [facility] Body height 65 [in_i] 65 [in_i] [facility] ([facility]) 5'5" Body weight 242.25 [lb_av] 242.25 [lb_av] [facility] T ([facility]) Body weight 109.885 kg 109.885 kg [facility] ([facility]) Body mass index (BMI) [Ratio] 40.3 kg/m2 40.3 k g/m2 [facility] ([facility]) Anthon body weight 125 [lb_av] 125 [lb_av] [facility] T ([facility])
[2021-03-27 12:26] LABS: BASO % 0.4 % (0.0-1.0); EOS % 0.9 % (0.0-3.0); HEMATOCRIT 38.9 % (36.0-47.0); HEMOGLOBIN 13.1 g/dl (12.0-15.5); LYMPH % 22.2 % (24.0-44.0); MEAN CORPUSCULAR HEMOGLOBIN 29.4 pg (27.0-33.0); MEAN CORPUSCULAR HGB CONC 33.7 g/dl (32.0-36.5); MEAN CORPUSCULAR VOLUME 87.4 fl (80.0-96.0); MONO # 0.4 10^3/uL (0.0-0.8); NEUTROPHILS # 3.1 10^3/uL (1.5-8.5); NEUTROPHILS % 68.3 % (36.0-66.0); PLATELET COUNT, AUTOMATED 146 10^3/uL (150-450); RED BLOOD COUNT 4.45 10^6/uL (4.00-5.40); WHITE BLOOD COUNT 4.6 10^3/uL (4.0-10.0)
--- NOTE | 2021-03-27 12:43 | REP ---
INDICATION: swelling, pain, no DANN, hx breast CA. COMPARISON: None. TECHNIQUE: : Duplex Doppler ultrasound evaluation was obtained of the left upper extremity venous system. FINDINGS: There is no evidence of deep venous thrombosis of the deep venous system of the left upper extremity. IMPRESSION: No evidence of deep venous thrombosis of the left upper extremity. <Electronically signed by Yemi Dougherty > 03/27/21 [id number]
[2021-03-27 12:46] LABS: BLOOD UREA NITROGEN 9 MG/DL (7-18); CALCIUM LEVEL 8.5 MG/DL (8.5-10.1); CARBON DIOXIDE LEVEL 30 MEQ/L (21-32); CHLORIDE LEVEL 107 MEQ/L (98-107); CREATININE FOR GFR 0.82 MG/DL (0.55-1.30); GLOMERULAR FILTRATION RATE > 60.0 (>58); GLUCOSE, FASTING 93 MG/DL (70-100); POTASSIUM SERUM 3.7 MEQ/L (3.5-5.1); SODIUM LEVEL 139 MEQ/L (136-145)
[2021-03-27 12:50] LABS: ERYTHROCYTE SEDIMENTATION RATE 28 mm/hr (0-20)
[2021-03-27 13:50] VITALS: BP 111/59
== END 2021-03-27 13:53 | disposition home or self-care (01) ==
LOC: M ED 10:43
DX: M79.602 Pain in left arm (principal); R21 Rash and other nonspecific skin eruption; E11.9 Type 2 diabetes mellitus without complications; Z79.899 Other long term (current) drug therapy; Z91.041 Radiographic dye allergy status; Z88.0 Allergy status to penicillin; Z88.1 Allergy status to other antibiotic agents; Z88.2 Allergy status to sulfonamides; Z88.8 Allergy status to other drugs, medicaments and biological substances; Z91.040 Latex allergy status; Z98.890 Other specified postprocedural states; Z85.3 Personal history of malignant neoplasm of breast

== ENCOUNTER → 2021-09-19 | Outpatient (CLI) | payer OTHER ==
[~2021-09-19] MED LIST changes: +MAGN200T PO; +SAXE1INJ SQ
== END ==
LOC: M WHC 13:57
PROVIDERS: ATTEND Physician Assistant
DX: Z13.820 Encounter for screening for osteoporosis (principal); M85.88 Other specified disorders of bone density and structure, other site

== ENCOUNTER 2022-02-17 10:21 | Observation (INO) | payer OTHER ==
[~2022-02-17] VITALS: Ht 162.6 cm; Wt 88.2 kg
[~2022-02-17 10:21] MED LIST changes: -PANT40TA29; +PANT40TA29 PO
[2022-02-17] MEDS ORDERED: NS 500 ML IV ONE (13:20)
[2022-02-17] MEDS ORDERED: ACETAMINOPHEN TAB 650MG DOSE (2X325MG) PO ONE (13:20)
[2022-02-17 14:00] VITALS: O2SAT 97
[2022-02-17 14:07] LABS: HEMATOCRIT 38.4 % (36.0-47.0); HEMOGLOBIN 13.2 g/dl (12.0-15.5); LYMPH # 0.7 10^3/uL (1.5-5.0); LYMPH % 12.1 % (24.0-44.0); MEAN CORPUSCULAR HEMOGLOBIN 30.1 pg (27.0-33.0); MEAN CORPUSCULAR HGB CONC 34.4 g/dl (32.0-36.5); MEAN CORPUSCULAR VOLUME 87.5 fl (80.0-96.0); MONO # 0.4 10^3/uL (0.0-0.8); MONO % 7.8 % (2.0-8.0); NEUTROPHILS # 4.3 10^3/uL (1.5-8.5); NEUTROPHILS % 79.7 % (36.0-66.0); PLATELET COUNT, AUTOMATED 117 10^3/uL (150-450); RED BLOOD COUNT 4.39 10^6/uL (4.00-5.40); WHITE BLOOD COUNT 5.4 10^3/uL (4.0-10.0)
[2022-02-17 15:02] LABS: ALT/SGPT 29 U/L (12-78); BILIRUBIN,DIRECT 0.2 MG/DL (0.0-0.2); BILIRUBIN,TOTAL 0.9 MG/DL (0.2-1.0); BLOOD UREA NITROGEN 12 MG/DL (7-18); CALCIUM LEVEL 9.3 MG/DL (8.5-10.1); CARBON DIOXIDE LEVEL 27 MEQ/L (21-32); CHLORIDE LEVEL 101 MEQ/L (98-107); CREATININE FOR GFR 0.72 MG/DL (0.55-1.30); GLOMERULAR FILTRATION RATE > 60.0 (>51); GLUCOSE, FASTING 93 MG/DL (70-100); LIPASE 70 U/L (73-393); POTASSIUM SERUM 3.8 MEQ/L (3.5-5.1); SODIUM LEVEL 135 MEQ/L (136-145); TOTAL PROTEIN 7.6 GM/DL (6.4-8.2)
[2022-02-17 15:08] LABS: RSV AMPLIFICATION NEGATIVE (NEGATIVE)
[2022-02-17] MEDS ORDERED: ISOVUE-370 76% 100ML VIAL As Ordered ONE (15:19)
[2022-02-17] MEDS ORDERED: SEMA2.4P INJ (18:56)
[2022-02-17] MEDS ORDERED: ADDY1TAB PO (18:56)
[2022-02-17] MEDS ORDERED: ERGO500029 PO (18:56)
[2022-02-17] MEDS ORDERED: MAGN400T2 PO (18:58)
[2022-02-17] MEDS ORDERED: CALCD50TA PO (18:58)
[2022-02-17] MEDS ORDERED: HOME MED LIST COMPLETE! XX SCH (19:00)
[2022-02-17] MEDS ORDERED: KETOROLAC 30 MG/ML 1ML VIAL IV ONE (19:30)
[2022-02-17] MEDS ORDERED: LR 1,000 ML IV ONE (20:00)
[2022-02-17 22:58] VITALS: BP 103/57
[2022-02-17] MEDS: ACETAMINOPHEN 500 MG TAB PO SCH (23:38)
[2022-02-18 05:07] LABS: HEMATOCRIT 32.5 % (36.0-47.0); MEAN CORPUSCULAR HEMOGLOBIN 30.3 pg (27.0-33.0); MEAN CORPUSCULAR HGB CONC 34.5 g/dl (32.0-36.5); MEAN CORPUSCULAR VOLUME 87.8 fl (80.0-96.0); PLATELET COUNT, AUTOMATED 111 10^3/uL (150-450); WHITE BLOOD COUNT 4.5 10^3/uL (4.0-10.0)
[2022-02-18 05:14] LABS: HEMOGLOBIN 11.2 g/dl (12.0-15.5)
[2022-02-18 05:47] LABS: BLOOD UREA NITROGEN 11 MG/DL (7-18); CALCIUM LEVEL 8.6 MG/DL (8.5-10.1); CARBON DIOXIDE LEVEL 27 MEQ/L (21-32); CHLORIDE LEVEL 104 MEQ/L (98-107); CREATININE FOR GFR 0.57 MG/DL (0.55-1.30); GLOMERULAR FILTRATION RATE > 60.0 (>51); GLUCOSE, FASTING 88 MG/DL (70-100); POTASSIUM SERUM 3.4 MEQ/L (3.5-5.1); SODIUM LEVEL 138 MEQ/L (136-145)
[2022-02-18] MEDS ORDERED: POTASSIUM CHLORIDE 10MEQ SR TABLET PO ONE (07:05)
[2022-02-18] MEDS ORDERED: [UNRECOGNIZED DRUG - CODE] MM (07:13)
[2022-02-18] MEDS ORDERED: ACET-683 PO (07:13)
[2022-02-18] MEDS ORDERED: IBUP-1022 PO (07:13)
[2022-02-18] MEDS: ACETAMINOPHEN 500 MG TAB PO SCH (08:33)
[2022-02-18] MEDS ORDERED: ACET325C5 PO (08:51)
[2022-02-18] MEDS ORDERED: ENOXAPARIN 40MG/0.4ML SYRINGE (J1650 PER 10MG) SC SCH (09:00)
[2022-02-18] MEDS ORDERED: PANTOPRAZOLE 40MG VIAL IV SCH (09:00)
== END 2022-02-18 11:28 | disposition home or self-care (01) ==
LOC: M ED 10:21 → M PCU 18:19 → ENRESERV 18:44
PROVIDERS: ADMIT Student in an Organized Health Care Education/Training Program; ATTEND Student in an Organized Health Care Education/Training Program
DX: R79.1 Abnormal coagulation profile (principal); U07.1 COVID-19; J02.8 Acute pharyngitis due to other specified organisms; R65.10 Systemic inflammatory response syndrome (SIRS) of non-infectious origin without acute organ dysfunction; D69.6 Thrombocytopenia, unspecified; R50.9 Fever, unspecified; R00.0 Tachycardia, unspecified; K21.9 Gastro-esophageal reflux disease without esophagitis; Z85.3 Personal history of malignant neoplasm of breast; Z92.21 Personal history of antineoplastic chemotherapy; Z90.13 Acquired absence of bilateral breasts and nipples; Z79.899 Other long term (current) drug therapy; Z91.040 Latex allergy status; Z91.041 Radiographic dye allergy status; Z88.8 Allergy status to other drugs, medicaments and biological substances; Z88.0 Allergy status to penicillin; Z88.2 Allergy status to sulfonamides
CPT/HCPCS: 36415; 70490; 71045; 80048; 80076; 83690; 84439; 84443; 84484; 85025; 85027; 85379; 87631; 87880; 93005; 93041; 93970; 94760; 96372; 96374; 96375; 96376; 99285; C9113; J1650; J1885

== ENCOUNTER → 2022-03-16 | Outpatient (CLI) | payer OTHER ==
[~2022-03-16] MED LIST changes: +ACET-683 PO; +ACET325C5 PO; +ADDY1TAB PO; +CALCD50TA PO; +ERGO500029 PO; +IBUP-1022 PO; +MAGN400T2 PO; +SEMA2.4P INJ; +[UNRECOGNIZED DRUG - CODE] MM
[2022-03-16 15:43] LABS: BASO % 0.5 % (0.0-1.0); EOS # 0.1 10^3/uL (0.0-0.5); EOS % 1.4 % (0.0-3.0); HEMATOCRIT 37.3 % (36.0-47.0); HEMOGLOBIN 12.6 g/dl (12.0-15.5); LYMPH # 1.5 10^3/uL (1.5-5.0); LYMPH % 35.6 % (24.0-44.0); MEAN CORPUSCULAR HGB CONC 33.8 g/dl (32.0-36.5); MEAN CORPUSCULAR VOLUME 88.8 fl (80.0-96.0); MONO # 0.3 10^3/uL (0.0-0.8); MONO % 7.2 % (2.0-8.0); NEUTROPHILS # 2.4 10^3/uL (1.5-8.5); NEUTROPHILS % 55.1 % (36.0-66.0); PLATELET COUNT, AUTOMATED 139 10^3/uL (150-450); WHITE BLOOD COUNT 4.3 10^3/uL (4.0-10.0)
[2022-03-16 16:04] LABS: ALBUMIN 3.9 GM/DL (3.2-5.2); ALT/SGPT 18 U/L (12-78); AMYLASE 46 U/L (25-115); BILIRUBIN,TOTAL 0.5 MG/DL (0.2-1.0); BLOOD UREA NITROGEN 11 MG/DL (7-18); CALCIUM LEVEL 9.6 MG/DL (8.5-10.1); CARBON DIOXIDE LEVEL 29 MEQ/L (21-32); CHLORIDE LEVEL 107 MEQ/L (98-107); GLOMERULAR FILTRATION RATE > 60.0 (>51); GLUCOSE, FASTING 90 MG/DL (70-100); MONO REFLEX EBV COMP NEGATIVE (NEGATIVE); POTASSIUM SERUM 3.9 MEQ/L (3.5-5.1); SODIUM LEVEL 142 MEQ/L (136-145); TOTAL PROTEIN 6.9 GM/DL (6.4-8.2)
[2022-03-18 14:14] LABS: EBV VIRAL CAPSID AG IgG >600.0 U/mL (0.0-17.9); EBV VIRAL CAPSID AG IgM <36.0 U/mL (0.0-35.9)
== END ==
LOC: M PLALAB 13:33
PROVIDERS: ATTEND Physician Assistant
DX: K11.21 Acute sialoadenitis (principal)

== ENCOUNTER → 2022-04-07 | Outpatient (CLI) | payer OTHER | LOC: M RAD 07:46 | PROVIDERS: ATTEND Physician Assistant | DX: R22.1 Localized swelling, mass and lump, neck (principal); M54.2 Cervicalgia ==

== ENCOUNTER → 2022-04-07 | Outpatient (CLI) | payer OTHER ==
[~2022-04-07] MED LIST changes: +E-Z-GAS II EFFERVESCENT PACKET (SODIUM BICARB./CITRIC ACID/SIMETHICONE) As Ordered ONE; +E-Z-HD 98% w/w 340GM SUSP BTL As Ordered ONE; +E-Z-PAQUE 96% w/w SUSP 176GM BTL As Ordered ONE
== END ==
LOC: M RAD 07:50
PROVIDERS: ATTEND Otolaryngology
DX: K21.9 Gastro-esophageal reflux disease without esophagitis (principal)

== ENCOUNTER 2022-09-14 06:55 | Day surgery (SDC) | payer OTHER ==
[~2022-09-14] VITALS: Ht 162.6 cm; Wt 92.1 kg
[~2022-09-14 06:55] MED LIST changes: +AMIT10TA7 PO; +CVS1CAP2 PO; -E-Z-GAS II EFFERVESCENT PACKET (SODIUM BICARB./CITRIC ACID/SIMETHICONE) As Ordered ONE; -E-Z-HD 98% w/w 340GM SUSP BTL As Ordered ONE; -E-Z-PAQUE 96% w/w SUSP 176GM BTL As Ordered ONE; +FLUT11IN; +K2 P1TAB PO; +NS 1,000 ML IV ONE; +VITA100062 PO; +VITA1CAP21 PO
[2022-09-14] MEDS ORDERED: propofoL 200 MG/20 ML VIAL As Ordered ONE (08:11)
[2022-09-14] MEDS ORDERED: LIDOCAINE 2% 100MG/5ML SDV (FOR ANES.) As Ordered ONE (08:11)
[2022-09-14 08:45] VITALS: BP 115/79
== END 2022-09-14 09:00 | disposition home or self-care (01) ==
LOC: M OPP 06:55
PROVIDERS: ATTEND Surgery
DX: Z12.11 Encounter for screening for malignant neoplasm of colon (principal); D12.6 Benign neoplasm of colon, unspecified; K21.9 Gastro-esophageal reflux disease without esophagitis; M19.90 Unspecified osteoarthritis, unspecified site; G43.909 Migraine, unspecified, not intractable, without status migrainosus; G47.30 Sleep apnea, unspecified; F32.A Depression, unspecified; F41.9 Anxiety disorder, unspecified; Z85.3 Personal history of malignant neoplasm of breast; Z92.21 Personal history of antineoplastic chemotherapy; Z92.3 Personal history of irradiation; Z88.0 Allergy status to penicillin; Z88.1 Allergy status to other antibiotic agents; Z88.2 Allergy status to sulfonamides; Z88.8 Allergy status to other drugs, medicaments and biological substances; Z91.041 Radiographic dye allergy status; Z91.048 Other nonmedicinal substance allergy status; Z79.899 Other long term (current) drug therapy

== ENCOUNTER → 2023-01-22 | Outpatient (CLI) | payer OTHER ==
[~2023-01-22] MED LIST changes: -FLUT11IN; +FLUT12AE6; -NS 1,000 ML IV ONE
[2023-01-22 14:13] LABS: BASO % 0.8 % (0.0-1.0); EOS # 0.1 10^3/uL (0.0-0.5); EOS % 1.3 % (0.0-3.0); HEMATOCRIT 39.5 % (36.0-47.0); LYMPH # 1.6 10^3/uL (1.5-5.0); LYMPH % 40.8 % (24.0-44.0); MEAN CORPUSCULAR HEMOGLOBIN 29.5 pg (27.0-33.0); MEAN CORPUSCULAR HGB CONC 32.9 g/dl (32.0-36.5); MEAN CORPUSCULAR VOLUME 89.6 fl (80.0-96.0); MONO # 0.3 10^3/uL (0.0-0.8); MONO % 7.3 % (2.0-8.0); NEUTROPHILS % 49.5 % (36.0-66.0); PLATELET COUNT, AUTOMATED 179 10^3/uL (150-450); RED BLOOD COUNT 4.41 10^6/uL (4.00-5.40)
[2023-01-22 14:32] LABS: ALBUMIN 3.9 G/DL (3.2-5.2); ALKALINE PHOSPHATASE 71 U/L (46-116); ALT/SGPT 26 U/L (7.0-40); AST/SGOT 20 U/L (<34); BILIRUBIN,TOTAL 0.5 MG/DL (0.3-1.2); BLOOD UREA NITROGEN 8 MG/DL (9-23); CALCIUM LEVEL 9.4 MG/DL (8.5-10.1); CARBON DIOXIDE LEVEL 29 MMOL/L (20-31); CHLORIDE LEVEL 107 MMOL/L (98-107); CHOLESTEROL LEVEL 206 MG/DL (<200); CHOLESTEROL RISK RATIO 4.47 (<5); GLOMERULAR FILTRATION RATE > 60.0 (>51); GLUCOSE, FASTING 73 MG/DL (60-100); POTASSIUM SERUM 4.2 MMOL/L (3.5-5.1); SODIUM LEVEL 143 MMOL/L (136-145); TRIGLYCERIDES LEVEL 240 MG/DL (<150)
[2023-01-22 14:36] LABS: FOLATE 6.8 NG/ML (>5.4); THYROID STIMULATING HORMONE 1.533 uIU/ML (0.55-4.78); TOTAL 25(OH) VITAMIN D 67.2 NG/ML (20.0-100.0); VITAMIN B12 LEVEL 333 PG/ML (211-911)
[2023-01-22 14:37] LABS: FREE T4 1.12 NG/DL (0.89-1.76)
[2023-01-22 14:55] LABS: HEMOGLOBIN A1c 4.1 % (4.0-6.0)
== END ==
LOC: M PLALAB 11:14
PROVIDERS: ATTEND Physician Assistant
DX: Z13.220 Encounter for screening for lipoid disorders (principal); Z13.29 Encounter for screening for other suspected endocrine disorder; E55.9 Vitamin D deficiency, unspecified

== ENCOUNTER → 2023-05-07 | Outpatient (CLI) | payer OTHER ==
[2023-05-07 16:06] LABS: BASO % 0.8 % (0.0-1.0); EOS % 0.8 % (0.0-3.0); HEMATOCRIT 37.3 % (36.0-47.0); HEMOGLOBIN 12.8 g/dl (12.0-15.5); LYMPH # 1.6 10^3/uL (1.5-5.0); MEAN CORPUSCULAR HEMOGLOBIN 30.2 pg (27.0-33.0); MEAN CORPUSCULAR HGB CONC 34.3 g/dl (32.0-36.5); MONO # 0.3 10^3/uL (0.0-0.8); MONO % 6.5 % (2.0-8.0); NEUTROPHILS % 50.6 % (36.0-66.0); PLATELET COUNT, AUTOMATED 161 10^3/uL (150-450); RED BLOOD COUNT 4.24 10^6/uL (4.00-5.40); WHITE BLOOD COUNT 3.9 10^3/uL (4.0-10.0)
[2023-05-07 16:16] LABS: ERYTHROCYTE SEDIMENTATION RATE < 1 mm/hr (0-30)
[2023-05-07 16:35] LABS: URIC ACID 4.6 MG/DL (3.1-7.8)
[2023-05-07 16:36] LABS: C REACTIVE PROTEIN QUANTITATIV < 0.40 MG/DL (<1.0)
[2023-05-07 16:37] LABS: RHEUMATOID FACTOR QUANT 8.8 IU/ML (<14)
[2023-05-07 16:38] LABS: ALBUMIN 4.2 G/DL (3.2-5.2); ALKALINE PHOSPHATASE 44 U/L (46-116); ALT/SGPT 12 U/L (7.0-40); AST/SGOT 10 U/L (<34); BILIRUBIN,TOTAL 0.6 MG/DL (0.3-1.2); BLOOD UREA NITROGEN 11 MG/DL (9-23); CALCIUM LEVEL 9.5 MG/DL (8.5-10.1); CARBON DIOXIDE LEVEL 26 MMOL/L (20-31); CHLORIDE LEVEL 108 MMOL/L (98-107); CREATININE FOR GFR 0.62 MG/DL (0.55-1.30); GLOMERULAR FILTRATION RATE > 60.0 (>51); GLUCOSE, FASTING 83 MG/DL (60-100); POTASSIUM SERUM 3.7 MMOL/L (3.5-5.1); SODIUM LEVEL 141 MMOL/L (136-145)
[2023-05-07 16:41] LABS: THYROID STIMULATING HORMONE 1.057 uIU/ML (0.55-4.78)
== END ==
LOC: M PLALAB 12:11
PROVIDERS: ATTEND Physician Assistant
DX: I73.00 Raynaud's syndrome without gangrene (principal)

== ENCOUNTER 2023-10-15 20:35 | Emergency (ER) | payer OTHER ==
[~2023-10-15] VITALS: Ht 162.6 cm; Wt 72.7 kg
[~2023-10-15 20:35] MED LIST changes: -ZOLP6.2517 PO; +ZOLP6.2526 PO
[2023-10-15] MEDS ORDERED: TIRZ15PE3 IM (20:51)
[2023-10-15 21:14] LABS: BASO % 0.4 % (0.0-1.0); EOS # 0.1 10^3/uL (0.0-0.5); EOS % 0.6 % (0.0-3.0); HEMATOCRIT 40.9 % (36.0-47.0); HEMOGLOBIN 14.2 g/dl (12.0-15.5); LYMPH # 1.9 10^3/uL (1.5-5.0); LYMPH % 22.7 % (24.0-44.0); MEAN CORPUSCULAR HEMOGLOBIN 29.8 pg (27.0-33.0); MEAN CORPUSCULAR HGB CONC 34.7 g/dl (32.0-36.5); MEAN CORPUSCULAR VOLUME 85.9 fl (80.0-96.0); MONO # 0.6 10^3/uL (0.0-0.8); MONO % 7.1 % (2.0-8.0); NEUTROPHILS # 5.7 10^3/uL (1.5-8.5); NEUTROPHILS % 68.8 % (36.0-66.0); PLATELET COUNT, AUTOMATED 194 10^3/uL (150-450); RED BLOOD COUNT 4.76 10^6/uL (4.00-5.40); WHITE BLOOD COUNT 8.3 10^3/uL (4.0-10.0)
[2023-10-15 21:47] LABS: ALBUMIN 4.2 G/DL (3.2-5.2); ALKALINE PHOSPHATASE 58 U/L (46-116); ALT/SGPT 48 U/L (7.0-40); AST/SGOT 98 U/L (<34); BILIRUBIN,TOTAL 1.8 MG/DL (0.3-1.2); BLOOD UREA NITROGEN 16 MG/DL (9-23); CALCIUM LEVEL 9.8 MG/DL (8.5-10.1); CARBON DIOXIDE LEVEL 29 MMOL/L (20-31); CHLORIDE LEVEL 104 MMOL/L (98-107); CREATININE FOR GFR 0.68 MG/DL (0.55-1.30); GLOMERULAR FILTRATION RATE > 60.0 (>51); GLUCOSE, FASTING 124 MG/DL (60-100); POTASSIUM SERUM 3.6 MMOL/L (3.5-5.1); SODIUM LEVEL 139 MMOL/L (136-145)
[2023-10-15 22:07] LABS: LIPASE > 3500 U/L (12-53)
[2023-10-15] MEDS: NS 1,000 ML IV ONE ×2 (22:23→23:18)
[2023-10-15] MEDS: MORPHINE 4 MG/ML 1ML VIAL IV ONE (23:18)
[2023-10-16] MEDS: PROMETHAZINE 25MG/ML 1ML VIAL IV ONE (00:53)
[2023-10-16] MEDS: HYDROMORPHONE HCL 0.5 MG/ 0.5 ML SYRINGE IV PRN ×3 (01:55→20:45)
[2023-10-16] MEDS: LR 1,000 ML IV SCH (01:55)
[2023-10-16 09:55] LABS: BASO % 0.2 % (0.0-1.0); EOS % 0.3 % (0.0-3.0); HEMATOCRIT 39.7 % (36.0-47.0); HEMOGLOBIN 13.5 g/dl (12.0-15.5); LYMPH # 1.4 10^3/uL (1.5-5.0); LYMPH % 21.5 % (24.0-44.0); MEAN CORPUSCULAR HEMOGLOBIN 30.2 pg (27.0-33.0); MEAN CORPUSCULAR VOLUME 88.8 fl (80.0-96.0); MONO # 0.5 10^3/uL (0.0-0.8); MONO % 7.2 % (2.0-8.0); NEUTROPHILS # 4.6 10^3/uL (1.5-8.5); NEUTROPHILS % 70.3 % (36.0-66.0); PLATELET COUNT, AUTOMATED 166 10^3/uL (150-450); RED BLOOD COUNT 4.47 10^6/uL (4.00-5.40); WHITE BLOOD COUNT 6.6 10^3/uL (4.0-10.0)
[2023-10-16] MEDS ORDERED: ALBU8.5H INH (10:23)
[2023-10-16] MEDS ORDERED: TOPI-21 PO (10:23)
[2023-10-16] MEDS ORDERED: HOME MED LIST COMPLETE! XX SCH (10:25)
[2023-10-16 10:31] LABS: ALBUMIN 3.4 G/DL (3.2-5.2); BILIRUBIN,DIRECT 0.3 MG/DL (<0.4); BILIRUBIN,TOTAL 0.9 MG/DL (0.3-1.2)
[2023-10-16] MEDS: CIPROFLOXACIN 400 MG in IV 1 EA IV ONE (12:58)
[2023-10-16] MEDS: metroNIDAZOLE 500 MG in IV 1 EA IV ONE (14:22)
[2023-10-16] MEDS: fentaNYL 100 MCG/2 ML INJECTION IV ONE (15:49)
[2023-10-16] MEDS: HYDROMORPHONE HCL 0.5 MG/ 0.5 ML SYRINGE IV ONE (20:40)
[2023-10-16] MEDS: TOPIRAMATE (TopAMAX) 25 MG TAB PO SCH (21:00)
[2023-10-16] MEDS ORDERED: PROMETHAZINE 25MG/ML 1ML VIAL IV PRN (21:20)
[2023-10-16] MEDS ORDERED: ALBUTEROL 90 MCG/ACT 8GM HFA INHALER INH PRN (23:15)
[2023-10-17] MEDS ORDERED: CIPROFLOXACIN 400 MG in IV 1 EA IV SCH (01:00)
[2023-10-17] MEDS: CIPROFLOXACIN 400 MG in IV 1 EA IV SCH (03:03)
[2023-10-17] MEDS: MORPHINE 4 MG/ML 1ML VIAL IV PRN (03:32)
[2023-10-17 07:50] VITALS: TEMP 98.9
[2023-10-17 07:54] VITALS: O2SAT 98
[2023-10-17 07:58] VITALS: BP 121/65
[2023-10-17] MEDS ORDERED: CALCIUM/VITAMIN D 500 MG TAB PO SCH (09:00)
== END 2023-10-17 08:08 | disposition short-term general hospital (02) ==
LOC: M ED 20:35 → M ED INP 10-16 10:49 → UNDOADMIN 10-16 10:49 → M ED 10-17 08:08
DX: K85.10 Biliary acute pancreatitis without necrosis or infection (principal); K80.20 Calculus of gallbladder without cholecystitis without obstruction; N20.0 Calculus of kidney; C50.919 Malignant neoplasm of unspecified site of unspecified female breast; K21.9 Gastro-esophageal reflux disease without esophagitis; E66.9 Obesity, unspecified; Z86.16 Personal history of COVID-19; Z91.041 Radiographic dye allergy status; Z88.0 Allergy status to penicillin; Z88.2 Allergy status to sulfonamides; Z88.8 Allergy status to other drugs, medicaments and biological substances; Z91.040 Latex allergy status; Z79.52 Long term (current) use of systemic steroids; Z79.899 Other long term (current) drug therapy
CPT/HCPCS: 74176; 74181; 76705; 80053; 80076; 81001; 82248; 83690; 85025; 87088; 87186; 96361; 96374; 96375; 96376; 99285; J0744; J1170; J1836; J2550; J3010

== ENCOUNTER → 2023-10-30 | Outpatient (REF) | payer OTHER ==
[~2023-10-30] MED LIST changes: +ALBU8.5H INH; +TIRZ15PE3 IM; +TOPI-21 PO
== END ==
LOC: M LAB REF 10:30
PROVIDERS: ATTEND Physician Assistant
DX: R19.7 Diarrhea, unspecified (principal)

== ENCOUNTER → 2024-05-22 | Outpatient (CLI) | payer OTHER | LOC: M WHC 07:43 | PROVIDERS: ATTEND Physician Assistant | DX: N63.20 Unspecified lump in the left breast, unspecified quadrant (principal) ==

== ENCOUNTER 2025-01-30 11:54 | Day surgery (SDC) | payer OTHER ==
[~2025-01-30] VITALS: Ht 162.6 cm; Wt 69.6 kg
[~2025-01-30 11:54] MED LIST changes: +ACETAMINOPHEN 1000MG/100ML IV BAG As Ordered ONE; +AMIT10TA11 PO; -AMIT10TA7 PO; -IBUP-1022 PO; +IBUP600T42 PO; +MIDAZOLAM INJ 2 MG/2 ML VIAL As Ordered ONE
[2025-01-30] MEDS ORDERED: LR 1,000 ML IV SCH (12:50)
[2025-01-30] MEDS ORDERED: dexAMETHasone 4 MG/ML 1 ML VIAL As Ordered ONE (12:57)
[2025-01-30] MEDS ORDERED: ONDANSETRON 4MG 2ML VIAL As Ordered ONE (12:58)
[2025-01-30] MEDS: SCOPOLAMINE 1MG TRANSDERMAL PATCH TOP ONE (13:20)
[2025-01-30] MEDS: ceFAZolin SOD 2 GM IV ONCE IV ONE (13:30)
[2025-01-30] MEDS ORDERED: KETOROLAC 30 MG/ML 1 ML VIAL As Ordered ONE (13:51)
[2025-01-30 15:00] VITALS: BP 129/70; TEMP 97; O2SAT 100
== END 2025-01-30 15:07 | disposition home or self-care (01) ==
LOC: M SDC 11:54
PROVIDERS: ATTEND Surgery
DX: D21.6 Benign neoplasm of connective and other soft tissue of trunk, unspecified (principal); D21.22 Benign neoplasm of connective and other soft tissue of left lower limb, including hip; G47.30 Sleep apnea, unspecified; K58.9 Irritable bowel syndrome, unspecified; Z79.899 Other long term (current) drug therapy; Z92.21 Personal history of antineoplastic chemotherapy; Z92.3 Personal history of irradiation; K21.9 Gastro-esophageal reflux disease without esophagitis; Z85.3 Personal history of malignant neoplasm of breast; Z90.710 Acquired absence of both cervix and uterus; Z88.1 Allergy status to other antibiotic agents; Z88.8 Allergy status to other drugs, medicaments and biological substances; Z88.0 Allergy status to penicillin; Z91.048 Other nonmedicinal substance allergy status; Z91.040 Latex allergy status; Z88.2 Allergy status to sulfonamides; Z91.041 Radiographic dye allergy status; Z90.13 Acquired absence of bilateral breasts and nipples
CPT/HCPCS: 21931; 28043; 88304; J0131; J0665; J0690; J1100; J1885; J2250; J2405; J3010

== ENCOUNTER 2025-03-03 17:23 | Emergency (ER) | payer OTHER ==
[~2025-03-03] VITALS: Ht 162.6 cm; Wt 71.2 kg
[~2025-03-03 17:23] MED LIST changes: -ACETAMINOPHEN 1000MG/100ML IV BAG As Ordered ONE; -MIDAZOLAM INJ 2 MG/2 ML VIAL As Ordered ONE
[2025-03-03 17:25] VITALS: TEMP 97.9
[2025-03-03] MEDS: FLUORESCEIN OPHTH 1 MG STRIP OS ONE (18:38)
[2025-03-03] MEDS: TETRACAINE 0.5% OPHTH SOLN 4ML OS ONE (18:38)
[2025-03-03] MEDS: TETANUS/DIPHTH/ACEL. PERTUSSIS 0.5 ML SYR IM.IMMUN ONE (18:40)
[2025-03-03 20:16] VITALS: BP 148/82; O2SAT 98
== END 2025-03-03 20:45 | disposition home or self-care (01) ==
LOC: M ED 17:23
DX: H33.002 Unspecified retinal detachment with retinal break, left eye (principal); G47.33 Obstructive sleep apnea (adult) (pediatric); G43.909 Migraine, unspecified, not intractable, without status migrainosus; K21.9 Gastro-esophageal reflux disease without esophagitis; M54.50 Low back pain, unspecified; Z90.13 Acquired absence of bilateral breasts and nipples; Z98.82 Breast implant status; Z79.899 Other long term (current) drug therapy; Z91.041 Radiographic dye allergy status; Z88.2 Allergy status to sulfonamides; Z88.8 Allergy status to other drugs, medicaments and biological substances; Z91.040 Latex allergy status; Z23 Encounter for immunization

== ENCOUNTER → 2025-03-04 | Outpatient (CLI) | payer OTHER ==
[2025-03-04 11:34] LABS: BASO # 0.0 10^3/uL (0.0-0.2); BASO % 0.5 % (0.0-1.0); EOS # 0.0 10^3/uL (0.0-0.5); EOS % 1.1 % (0.0-3.0); LYMPH # 1.2 10^3/uL (1.5-5.0); LYMPH % 34.0 % (24.0-44.0); MONO # 0.3 10^3/uL (0.0-0.8); MONO % 8.8 % (2.0-8.0); NEUTROPHILS # 2.0 10^3/uL (1.5-8.5); NEUTROPHILS % 55.3 % (36.0-66.0); PLATELET COUNT, AUTOMATED 122 10^3/uL (150-450)
[2025-03-04 11:46] LABS: ERYTHROCYTE SEDIMENTATION RATE 3 mm/hr (0-30)
== END ==
LOC: M LAB 10:33
PROVIDERS: ATTEND Optometrist
DX: H47.019 Ischemic optic neuropathy, unspecified eye (principal)

== ENCOUNTER 2025-03-06 14:06 | Emergency (ER) | payer OTHER ==
[~2025-03-06] VITALS: Ht 157.5 cm; Wt 70.2 kg
[2025-03-06 14:11] VITALS: TEMP 98.2
[2025-03-06 16:31] LABS: PLATELET COUNT, AUTOMATED 150 10^3/uL (150-450)
[2025-03-06 16:56] LABS: CALCIUM LEVEL 9.7 MG/DL (8.5-10.1); CARBON DIOXIDE LEVEL 30 MMOL/L (20-31); CHLORIDE LEVEL 103 MMOL/L (98-107); CREATININE FOR GFR 0.56 MG/DL (0.55-1.30); GLOMERULAR FILTRATION RATE > 90.0 (>51); POTASSIUM SERUM 4.1 MMOL/L (3.5-5.1); SODIUM LEVEL 141 MMOL/L (136-145)
[2025-03-06] MEDS ORDERED: HOME MED LIST COMPLETE! XX SCH (17:35)
[2025-03-06 23:00] VITALS: BP 104/57
[2025-03-06 23:15] VITALS: O2SAT 99
== END 2025-03-06 23:19 | disposition home or self-care (01) ==
LOC: M ED 14:06
DX: H43.399 Other vitreous opacities, unspecified eye (principal); C50.912 Malignant neoplasm of unspecified site of left female breast; Z90.12 Acquired absence of left breast and nipple; Z88.0 Allergy status to penicillin; Z88.2 Allergy status to sulfonamides; Z88.8 Allergy status to other drugs, medicaments and biological substances; Z91.041 Radiographic dye allergy status; Z91.048 Other nonmedicinal substance allergy status